=== PATIENT | female | born 2000 ===

== ENCOUNTER 2025-04-12 14:41 | Outpatient (CLI) | payer OTHER | END 2025-04-12 14:44 | disposition home or self-care (01) | LOC: PRENATAL 14:41 | PROVIDERS: ATTEND Obstetrics & Gynecology Maternal & Fetal Medicine | DX: O44.00 Complete placenta previa NOS or without hemorrhage, unspecified trimester (principal); Z3A.24 24 weeks gestation of pregnancy ==

== ENCOUNTER 2025-06-07 11:16 | Outpatient (CLI) | payer OTHER | END 2025-06-07 11:17 | disposition home or self-care (01) | LOC: PRENATAL 11:16 | PROVIDERS: ATTEND Obstetrics & Gynecology Maternal & Fetal Medicine | DX: O26.849 Uterine size-date discrepancy, unspecified trimester (principal); O36.8130 Decreased fetal movements, third trimester, not applicable or unspecified; Z3A.32 32 weeks gestation of pregnancy ==